=== PATIENT | male | born 1955 | race Caucasian/White ===

== ENCOUNTER 2023-11-02 00:40 | Inpatient (IN) | payer OTHER ==
[~2023-11-02] VITALS: Ht 177.8 cm; Wt 99.8 kg
[2023-11-02 00:50] VITALS: BP 161/91; PULSE 79; RESP 20; TEMP 97.4; O2SAT 97
[2023-11-02] MEDS: ONDANSETRON 4 MG/2 ML VIAL IVP ONE (01:01)
[2023-11-02] MEDS: MORPHINE SULFATE 4 MG/ML SYR IVP ONE ×2 (01:02→03:43)
[2023-11-02 01:06] LABS: BASOPHILS % (AUTO) 0.1 % (0.0-2.0); HEMOGLOBIN 12.3 g/dL (12.0-18.0); LYMPHOCYTES # (AUTO) 0.5 K/uL (2.0-11.5); LYMPHOCYTES % (AUTO) 3.2 % (20.5-51.1); MEAN CORPUSCULAR HEMOGLOBIN 32 pg (27-31); MEAN CORPUSCULAR HGB CONC 34 g/dL (33-37); MEAN CORPUSCULAR VOLUME 94.3 fL (80-94); MONOCYTES # (AUTO) 0.2 K/uL (0.8-1.0); MONOCYTES % (AUTO) 1.2 % (1.7-9.3); NEUTROPHILS # (AUTO) 15.5 K/uL (1.8-7.7); NEUTROPHILS % (AUTO) 95.5 % (42.2-75.2); PLATELET COUNT (AUTO) 124 K/uL (140-450); RED BLOOD CELL COUNT(AUTO) 3.82 MIL/uL (4.20-6.10); RED CELL DISTRIBUTION WIDTH 16.5 % (11.6-13.7); WHITE BLOOD COUNT (AUTO) 16.2 K/uL (4.8-10.8)
[2023-11-02 01:17] LABS: INR 1.17 (0.8-1.2); PARTIAL THROMBOPLASTIN TIME 27.4 secs (22-35.6); PROTHROMBIN TIME 12.2 secs (10.8-13.4)
[2023-11-02 01:22] LABS: ALBUMIN 2.3 g/dL (3.4-5.0); ANION GAP 14.3 (8-16); CALCIUM 8.2 mg/dL (8.5-10.1); CARBON DIOXIDE 21.6 mmol/L (21-32); CREATININE 1.6 mg/dL (0.6-1.3); POTASSIUM 4.9 mmol/L (3.5-5.1); TOTAL BILIRUBIN 2.5 mg/dL (0.0-1.0); TOTAL PROTEIN, SERUM 5.8 g/dL (6.4-8.2)
[2023-11-02 01:29] LABS: LACTIC ACID 4.2 mmol/L (0.4-2.0)
[2023-11-02] MEDS ORDERED: LOSA-272 PO (01:36)
[2023-11-02] MEDS ORDERED: PIPERACILLIN/TAZOBACTAM 3.375 GM VIAL IV ONE ×2 (03:23→13:51)
[2023-11-02] MEDS: PIPERACILLIN/TAZOBACTAM 3.375 GM in DEXTROSE 5% 50 ML IV ONE (03:44)
[2023-11-02] MEDS: NACL 0.9% 1,000 ML IV ONE (05:47)
[2023-11-02] MEDS ORDERED: ACETAMINOPHEN 325 MG TAB PO PRN (06:25)
[2023-11-02] MEDS ORDERED: ONDANSETRON 4 MG/2 ML VIAL IM/IVP PRN (06:25)
[2023-11-02] MEDS ORDERED: guaiFENesin DM 200/20 MG-10 ML 10 ML UDC PO PRN (06:25)
[2023-11-02] MEDS ORDERED: POTASSIUM CHLORIDE 10 MEQ TABER PO PRN (06:25)
[2023-11-02] MEDS ORDERED: DOCUSATE SODIUM 100 MG GELCAP PO PRN (06:25)
[2023-11-02] MEDS ORDERED: ZOLPIDEM 5 MG TAB PO PRN (06:25)
[2023-11-02] MEDS: HYDROcodone/APAP 7.5/325 MG 1 TAB PO PRN (08:36)
[2023-11-02] MEDS: PANTOPRAZOLE 40 MG TABEC PO SCH (11:02)
[2023-11-02 12:30] LABS: FLU A ANTIGEN negative (NEGATIVE); FLU B ANTIGEN negative (NEGATIVE)
[2023-11-02] MEDS: PIPERACILLIN/TAZOBACTAM 3.375 GM in DEXTROSE 5% 50 ML IV SCH (13:57)
[2023-11-02 16:28] VITALS: PULSE 76; RESP 13; O2SAT 98
[2023-11-02] MEDS ORDERED: ALBUMIN HUMAN 25% 100 ML IV SCH (17:30)
[2023-11-02] MEDS: OCTREOTIDE ACETATE 1.25 MG in NACL 0.9% 250 ML IV SCH (18:07)
[2023-11-02] MEDS: MIDODRINE 5 MG TAB PO SCH (18:21)
[2023-11-02] MEDS ORDERED: MIDODRINE 5 MG TAB PO SCH (19:00)
[2023-11-02 20:00] VITALS: BP 119/68; PULSE 74; PULSE 89; RESP 18; RESP 20; TEMP 98.6; O2SAT 98
[2023-11-02 20:23] VITALS: PULSE 92
[2023-11-02] MEDS: LACTULOSE 20 GM/30 ML UDC PO SCH (20:52)
[2023-11-02] MEDS: BUMETANIDE 1 MG/4 ML VIAL IV SCH (21:33)
[2023-11-03] VITALS (7 sets, daily range): BP systolic 104–122; BP diastolic 57–73; PULSE 81–95; RESP 16–18; TEMP 97.2–98.2; O2SAT 97–98
[2023-11-03 05:23] LABS: BASOPHILS % (AUTO) 0.2 % (0.0-2.0); EOSINOPHILS # (AUTO) 0.1 K/uL (0-0.4); EOSINOPHILS % (AUTO) 0.5 % (0.0-4.0); HEMATOCRIT 29.4 % (36-52); HEMOGLOBIN 10.1 g/dL (12.0-18.0); LYMPHOCYTES # (AUTO) 0.4 K/uL (2.0-11.5); LYMPHOCYTES % (AUTO) 3.7 % (20.5-51.1); MEAN CORPUSCULAR HEMOGLOBIN 33 pg (27-31); MEAN CORPUSCULAR HGB CONC 35 g/dL (33-37); MEAN CORPUSCULAR VOLUME 94.6 fL (80-94); MONOCYTES # (AUTO) 0.7 K/uL (0.8-1.0); MONOCYTES % (AUTO) 5.9 % (1.7-9.3); NEUTROPHILS # (AUTO) 9.9 K/uL (1.8-7.7); NEUTROPHILS % (AUTO) 89.7 % (42.2-75.2); PLATELET COUNT (AUTO) 52 K/uL (140-450); RED BLOOD CELL COUNT(AUTO) 3.11 MIL/uL (4.20-6.10); RED CELL DISTRIBUTION WIDTH 16.2 % (11.6-13.7)
[2023-11-03 05:40] LABS: ALBUMIN 1.8 g/dL (3.4-5.0); CALCIUM 7.8 mg/dL (8.5-10.1); CARBON DIOXIDE 25.8 mmol/L (21-32); CREATININE 1.5 mg/dL (0.6-1.3); POTASSIUM 4.8 mmol/L (3.5-5.1); TOTAL BILIRUBIN 1.4 mg/dL (0.0-1.0); TOTAL PROTEIN, SERUM 4.9 g/dL (6.4-8.2)
[2023-11-03] MEDS: LOSARTAN 50 MG TAB PO SCH (09:00)
[2023-11-03] MEDS: ALBUMIN HUMAN 25% 100 ML IV SCH (10:32)
[2023-11-03] MEDS: FUROSEMIDE 20 MG/2 ML VIAL IVP SCH (12:23)
[2023-11-03 14:03] LABS: APPEARANCE,URINE CLEAR (CLEAR); BILIRUBIN,URINE NEGATIVE (NEGATIVE); BLOOD, URINE NEGATIVE (NEGATIVE); COLOR,URINE YELLOW (YELLOW); LEUKOCYTE ESTERASE ,URINE NEGATIVE (NEGATIVE); NITRITE, URINE POSITIVE (NEGATIVE); PROTEIN,URINE NEGATIVE (NEGATIVE); UGLUCOSE NEGATIVE (NEGATIVE); UROBILINOGEN,URINE 0.2 EU/dL (0.2 - 1)
[2023-11-03 14:11] LABS: RBC,URINE 0-5 /HPF (0-5); WBC,URINE 0-5 /HPF (0-5)
[2023-11-03 14:12] LABS: BACTERIA,URINE 10-30 (MOD) /HPF (None Seen); SQUAMOUS EPITHELIAL CELL,UR 0-3 (FEW) /LPF (0-3 (FEW)); YEAST,URINE Few /HPF (None Seen)
[2023-11-03 18:09] LABS: PROTEIN, BODY FLUID 0.3 g/dL
[2023-11-03] MEDS: MORPHINE SULFATE 2 MG/ML SYR IVP PRN (18:16)
[2023-11-03 21:41] LABS: APPEARANCE,SPUN,BODY FLUID CLEAR (CLEAR); APPEARANCE,UNSPUN,BODY FLUID CLEAR (CLEAR); COLOR,BODY FLUID LT YELLOW (LT YELLOW); SPECIMENTYPE,BODY FLUID ASCITES
[2023-11-03 21:42] LABS: GLUCOSE,BODY FLUID 128 mg/dL; POLYNUCLEAR, BODY FLUID 28 %; RBC, BODY FLUID 18 /cu. mm.; TOTAL VOLUME,BODY FLUID 7000 mL; WBC, BODY FLUID 54 /cu. mm.
[2023-11-03 21:43] LABS: PROTEIN, BODY FLUID 0.3 g/dL
[2023-11-04] VITALS: BP 117/65; PULSE 86; RESP 16; TEMP 97.6; O2SAT 97
[2023-11-04 05:23] LABS: BASOPHILS % (AUTO) 0.1 % (0.0-2.0); EOSINOPHILS # (AUTO) 0.1 K/uL (0-0.4); EOSINOPHILS % (AUTO) 1.1 % (0.0-4.0); HEMATOCRIT 26.2 % (36-52); HEMOGLOBIN 9.2 g/dL (12.0-18.0); LYMPHOCYTES # (AUTO) 0.4 K/uL (2.0-11.5); LYMPHOCYTES % (AUTO) 4.7 % (20.5-51.1); MEAN CORPUSCULAR HEMOGLOBIN 33 pg (27-31); MEAN CORPUSCULAR HGB CONC 35 g/dL (33-37); MEAN CORPUSCULAR VOLUME 93.9 fL (80-94); MONOCYTES # (AUTO) 0.6 K/uL (0.8-1.0); MONOCYTES % (AUTO) 7.2 % (1.7-9.3); NEUTROPHILS # (AUTO) 7.6 K/uL (1.8-7.7); NEUTROPHILS % (AUTO) 86.9 % (42.2-75.2); PLATELET COUNT (AUTO) 48 K/uL (140-450); RED BLOOD CELL COUNT(AUTO) 2.79 MIL/uL (4.20-6.10); RED CELL DISTRIBUTION WIDTH 15.7 % (11.6-13.7); WHITE BLOOD COUNT (AUTO) 8.8 K/uL (4.8-10.8)
[2023-11-04 05:41] LABS: ALBUMIN 2.1 g/dL (3.4-5.0); ANION GAP 10.9 (8-16); CALCIUM 7.5 mg/dL (8.5-10.1); CREATININE 1.4 mg/dL (0.6-1.3); POTASSIUM 3.9 mmol/L (3.5-5.1); TOTAL BILIRUBIN 2.1 mg/dL (0.0-1.0); TOTAL PROTEIN, SERUM 4.9 g/dL (6.4-8.2)
[2023-11-04 08:00] VITALS: BP 107/63; PULSE 74; RESP 16; RESP 18; TEMP 98.1; O2SAT 97
[2023-11-04] MEDS: FUROSEMIDE 40 MG/4 ML VIAL IVP SCH (18:00)
[2023-11-04 18:18] VITALS: BP 100/50; PULSE 74; RESP 18; TEMP 98.1; O2SAT 97
[2023-11-04 20:00] VITALS: PULSE 77; RESP 19; O2SAT 100
[2023-11-05] VITALS: BP 99/53; PULSE 77; RESP 19; TEMP 98.5; O2SAT 100
[2023-11-05 05:44] LABS: BASOPHILS % (AUTO) 0.4 % (0.0-2.0); EOSINOPHILS # (AUTO) 0.1 K/uL (0-0.4); EOSINOPHILS % (AUTO) 1.3 % (0.0-4.0); HEMOGLOBIN 9.3 g/dL (12.0-18.0); LYMPHOCYTES # (AUTO) 0.4 K/uL (2.0-11.5); MEAN CORPUSCULAR HEMOGLOBIN 33 pg (27-31); MEAN CORPUSCULAR HGB CONC 35 g/dL (33-37); MONOCYTES # (AUTO) 0.8 K/uL (0.8-1.0); MONOCYTES % (AUTO) 10.1 % (1.7-9.3); NEUTROPHILS # (AUTO) 6.4 K/uL (1.8-7.7); NEUTROPHILS % (AUTO) 83.2 % (42.2-75.2); PLATELET COUNT (AUTO) 58 K/uL (140-450); RED BLOOD CELL COUNT(AUTO) 2.87 MIL/uL (4.20-6.10); RED CELL DISTRIBUTION WIDTH 15.1 % (11.6-13.7); WHITE BLOOD COUNT (AUTO) 7.6 K/uL (4.8-10.8)
[2023-11-05 05:45] LABS: ALBUMIN 2.3 g/dL (3.4-5.0); ANION GAP 10.7 (8-16); CALCIUM 7.5 mg/dL (8.5-10.1); CARBON DIOXIDE 25.4 mmol/L (21-32); CREATININE 1.3 mg/dL (0.6-1.3); POTASSIUM 4.1 mmol/L (3.5-5.1); TOTAL PROTEIN, SERUM 4.9 g/dL (6.4-8.2)
[2023-11-05 08:00] VITALS: BP 102/53; PULSE 77; PULSE 78; RESP 18; TEMP 97.7; O2SAT 98
[2023-11-05] MEDS ORDERED: BUMETANIDE 1 MG/4 ML VIAL IV ONE (08:15)
[2023-11-05] MEDS: BUMETANIDE 1 MG/4 ML VIAL IV SCH (09:34)
[2023-11-05] MEDS: AMOXIL/CLAVULANATE 875/125 MG 1 TAB PO SCH (09:38)
[2023-11-05] MEDS ORDERED: MIDODRINE 5 MG TAB PO SCH (13:00)
== END 2023-11-05 11:47 | disposition left against medical advice (07) | DRG 432 ==
LOC: MED 00:40 → MTU 06:22
PROVIDERS: ADMIT Student in an Organized Health Care Education/Training Program; ATTEND Student in an Organized Health Care Education/Training Program
PROC: 0W9G3ZZ Drainage of Peritoneal Cavity, Percutaneous Approach (ICD-10-PCS; principal; 2023-11-02)
DX: K70.31 Alcoholic cirrhosis of liver with ascites (principal); N17.0 Acute kidney failure with tubular necrosis; K76.6 Portal hypertension; L03.311 Cellulitis of abdominal wall; Z20.822 Contact with and (suspected) exposure to COVID-19; D64.9 Anemia, unspecified; I12.9 Hypertensive chronic kidney disease with stage 1 through stage 4 chronic kidney disease, or unspecified chronic kidney disease; F10.10 Alcohol abuse, uncomplicated; N18.9 Chronic kidney disease, unspecified; B96.89 Other specified bacterial agents as the cause of diseases classified elsewhere; Z79.899 Other long term (current) drug therapy; Z88.1 Allergy status to other antibiotic agents
CPT/HCPCS: 36415; 49083; 76705; 80053; 81001; 82105; 82150; 82570; 82945; 83605; 83690; 84157; 84300; 85025; 85610; 85730; 87040; 87070; 87075; 87081; 87186; 87205; 89051; 96361; 96365; 96375; 96376; 99291; J1940; J2001; J2270; J2354; J2405; J2543; J3490; J7030; J7060; P9046; Q0092; Q9967